=== PATIENT | male | born 1965 | race Caucasian/White ===

== ENCOUNTER 2018-02-19 10:49 | Emergency (ER) | payer BC ==
[2018-02-19] MEDS: HYDROMORPHONE HCL 0.5 MG/ 0.5 ML SYRINGE (J1170 PER 1) IM (11:51)
== END 2018-02-19 12:11 | disposition home or self-care (01) ==
LOC: M ED 10:49
DX: S52.532A Colles' fracture of left radius, initial encounter for closed fracture (principal); S62.303A Unspecified fracture of third metacarpal bone, left hand, initial encounter for closed fracture; W19.XXXA Unspecified fall, initial encounter; Y92.099 Unspecified place in other non-institutional residence as the place of occurrence of the external cause; Y93.9 Activity, unspecified; Y99.9 Unspecified external cause status; Z79.82 Long term (current) use of aspirin
CPT/HCPCS: J1170

== ENCOUNTER 2018-11-12 00:02 | Emergency (ER) | payer BC ==
[~2018-11-12] VITALS: Ht 182.9 cm; Wt 95.5 kg
[~2018-11-12 00:02] MED LIST: ASPI-1 PO; HYDR-3713 PO
[2018-11-12 00:48] LABS: HEMOGLOBIN 16.7 g/dl (13.5-17.5); MEAN CORPUSCULAR HGB CONC 34.8 g/dl (32.0-36.5); MEAN CORPUSCULAR VOLUME 89.1 fl (80.0-96.0); PLATELET COUNT, AUTOMATED 292 10^3/uL (150-450); RED BLOOD COUNT 5.39 10^6/uL (4.30-6.10); WHITE BLOOD COUNT 9.7 10^3/uL (4.0-10.0)
[2018-11-12 01:15] LABS: AMPHETAMINES LEVEL URINE NEGATIVE (NEGATIVE); BARBITURATES URINE NEGATIVE (NEGATIVE); BENZODIAZEPINES URINE NEGATIVE (NEGATIVE); CANNABINOIDS URINE NEGATIVE (NEGATIVE); COCAINE METABOLITE URINE NEGATIVE (NEGATIVE); METHADONE URINE NEGATIVE (NEGATIVE); OPIATES URINE NEGATIVE (NEGATIVE); PHENCYCLIDINE URINE NEGATIVE (NEGATIVE)
[2018-11-12 01:19] LABS: ACETAMINOPHEN LEVEL < 2.0 UG/ML (10.0-30.0); ALBUMIN 3.9 GM/DL (3.2-5.2); ALT/SGPT 58 U/L (12-78); BILIRUBIN,DIRECT < 0.1 MG/DL (0.0-0.2); BILIRUBIN,TOTAL 0.2 MG/DL (0.2-1.0); BLOOD UREA NITROGEN 7 MG/DL (7-18); CALCIUM LEVEL 8.8 MG/DL (8.5-10.1); CARBON DIOXIDE LEVEL 21 MEQ/L (21-32); CHLORIDE LEVEL 104 MEQ/L (98-107); CREATININE FOR GFR 0.97 MG/DL (0.70-1.30); ETHYL ALCOHOL (ETHANOL) 0.144 % (0.000-0.010); GLOMERULAR FILTRATION RATE > 60.0 (>56); GLUCOSE, FASTING 126 MG/DL (70-100); POTASSIUM SERUM 3.7 MEQ/L (3.5-5.1); SALICYLATE LEVEL < 1.7 MG/DL (5.0-30.0); SODIUM LEVEL 137 MEQ/L (136-145); TOTAL PROTEIN 7.8 GM/DL (6.4-8.2)
[2018-11-12 01:46] VITALS: BP 137/94
[2018-12-11] MEDS ORDERED: OMEP40CA97 PO (00:05)
== END 2018-11-12 01:48 | disposition home or self-care (01) ==
LOC: M ED 00:02
DX: F10.129 Alcohol abuse with intoxication, unspecified (principal); Z60.9 Problem related to social environment, unspecified
CPT/HCPCS: 36415; 80048; 80076; 80307; 84443; 85027; 99284; G0480

== ENCOUNTER 2018-12-10 21:50 | Emergency (ER) | payer BC ==
[~2018-12-10] VITALS: Ht 182.9 cm; Wt 100.0 kg
[2018-12-10] MEDS ORDERED: NEXI40CA PO (21:54)
[2018-12-10] MEDS ORDERED: PEPT262T2 PO (21:54)
[2018-12-10 23:07] LABS: BASO % 0.4 % (0.0-1.0); EOS # 0.1 10^3/uL (0.0-0.5); EOS % 1.3 % (0.0-3.0); HEMOGLOBIN 16.3 g/dl (13.5-17.5); LYMPH # 1.6 10^3/uL (1.5-5.0); LYMPH % 18.9 % (24.0-44.0); MEAN CORPUSCULAR HEMOGLOBIN 30.4 pg (27.0-33.0); MEAN CORPUSCULAR VOLUME 89.4 fl (80.0-96.0); MONO # 0.5 10^3/uL (0.0-0.8); MONO % 5.9 % (0.0-5.0); NEUTROPHILS # 6.1 10^3/uL (1.5-8.5); PLATELET COUNT, AUTOMATED 269 10^3/uL (150-450); RED BLOOD COUNT 5.37 10^6/uL (4.30-6.10); WHITE BLOOD COUNT 8.3 10^3/uL (4.0-10.0)
[2018-12-10 23:33] LABS: ALBUMIN 3.6 GM/DL (3.2-5.2); BILIRUBIN,DIRECT 0.5 MG/DL (0.0-0.2); BILIRUBIN,TOTAL 0.9 MG/DL (0.2-1.0); TOTAL PROTEIN 7.3 GM/DL (6.4-8.2)
--- NOTE | 2018-12-10 23:52 | REPVR ---
PROCEDURE INFORMATION: Exam: US Abdomen Limited, Right Upper Quadrant Exam date and time: 12/10/2018 11:11 PM Clinical history: 53 years old, male; Abdominal pain; Epigastric; Additional info: Upper abd pain R/O cholecystitis TECHNIQUE: Imaging protocol: Real-time ultrasound of the abdomen with image documentation. Examination was focused on the right upper quadrant. COMPARISON: No relevant prior studies available. FINDINGS: Liver: The liver is diffusely echogenic relative to the right kidney, findings consistent with steatosis. Gallbladder: Gallbladder not fully distended. Negative sonographic Chowdary's sign. No calculi demonstrated. Common bile duct: The common bile duct measures 3.6 mm. No mass or choledocholithiasis. Pancreas: Pancreas obscured by overlying bowel gas. Right kidney: Right kidney measures 11.8 x 5.1 x 4.6 cm. IMPRESSION: 1. Hepatic steatosis. 2. Gallbladder not fully distended. Negative sonographic Chowdary's sign. No calculi demonstrated. Electronically signed by: Flavio Cisneros On 12/10/2018 23:51:21 PM
[2018-12-11] MEDS ORDERED: OMEP40CA2 PO (00:05)
[2018-12-11 00:14] VITALS: BP 122/84
--- NOTE | 2018-12-11 08:18 | ECGEPIP ---
[facility] - ED Test Date: 2018-12-10 Pat Name: MARK PACE Department: Room: - Gender: Male [employer] Advisor: : [id number] Requested By: Maame Ware PA-C Order Number: [id number] Reading MD: Odette Stinson Measurements Intervals [place] Rate: 99 P: 42 SD: 142 QRS: -32 QRSD: 95 T: 21 QT: 362 QTc: 466 Interpretive Statements SINUS RHYTHM INDETERMINATE AXIS PATTERN CONSISTENT WITH PULMONARY DISEASE NSTTW abnormalities No prior Electronically Signed on 12-11-2018 8:17:54 EDT by Odette Stinson
== END 2018-12-11 00:15 | disposition home or self-care (01) ==
LOC: M ED 21:50
DX: R10.13 Epigastric pain (principal); K75.9 Inflammatory liver disease, unspecified; K76.0 Fatty (change of) liver, not elsewhere classified; R94.31 Abnormal electrocardiogram [ECG] [EKG]

== ENCOUNTER 2019-04-16 11:44 | Emergency (ER) | payer BC ==
[~2019-04-16] VITALS: Ht 182.9 cm; Wt 84.5 kg
[~2019-04-16 11:44] MED LIST changes: +NEXI40CA PO; +OMEP40CA97 PO; +PEPT262T2 PO
[2019-04-16] MEDS ORDERED: ACET-683 PO (11:51)
--- NOTE | 2019-04-16 12:13 | REP ---
Clinical: Severe right hip pain. Technique: Neutral and frog lateral views of the right hip. Findings: No acute fracture or dislocation. Skeletal structures, joint spaces, and surrounding soft tissues are normal for age. No overt osteoarthritic degenerative changes are appreciated. Impression: Normal age appropriate right hip radiographs. Electronically Signed by Sammy Arrieta MD 04/16/2019 12:05 P
[2019-04-16 13:56] LABS: BASO % 0.3 % (0.0-1.0); EOS # 0.1 10^3/uL (0.0-0.5); EOS % 1.5 % (0.0-3.0); HEMATOCRIT 46.2 % (42.0-52.0); HEMOGLOBIN 14.8 g/dl (13.5-17.5); LYMPH # 1.5 10^3/uL (1.5-5.0); MEAN CORPUSCULAR VOLUME 93.5 fl (80.0-96.0); MONO # 0.4 10^3/uL (0.0-0.8); MONO % 5.8 % (0.0-5.0); NEUTROPHILS # 4.1 10^3/uL (1.5-8.5); NEUTROPHILS % 67.1 % (36.0-66.0); PLATELET COUNT, AUTOMATED 231 10^3/uL (150-450); RED BLOOD COUNT 4.94 10^6/uL (4.30-6.10); WHITE BLOOD COUNT 6.1 10^3/uL (4.0-10.0)
[2019-04-16 14:09] VITALS: BP 114/77
== END 2019-04-16 14:15 | disposition home or self-care (01) ==
LOC: M ED 11:44
DX: M25.551 Pain in right hip (principal); M10.9 Gout, unspecified

== ENCOUNTER 2022-04-07 01:11 | Emergency (ER) | payer BC, SELFPAY ==
[~2022-04-07] VITALS: Ht 182.9 cm; Wt 85.1 kg
[~2022-04-07 01:11] MED LIST changes: +ACET-683 PO; +OMEP40CA4 PO; -OMEP40CA97 PO
[2022-04-07] MEDS ORDERED: NAPR-837 PO (04:47)
[2022-04-07] MEDS ORDERED: METH-1165 PO (04:47)
[2022-04-07] MEDS ORDERED: methocarbamoL 750 MG TAB PO ONE (04:50)
[2022-04-07] MEDS ORDERED: NAPROXEN 250 MG TAB PO ONE (04:50)
[2022-04-07 05:00] VITALS: BP 120/74
== END 2022-04-07 05:10 | disposition home or self-care (01) ==
LOC: M ED 01:11
DX: M25.552 Pain in left hip (principal); M10.9 Gout, unspecified; Z79.1 Long term (current) use of non-steroidal anti-inflammatories (NSAID); Z79.899 Other long term (current) drug therapy

== ENCOUNTER 2025-01-23 10:46 | Emergency (ER) | payer SELFPAY ==
[~2025-01-23] VITALS: Ht 182.9 cm; Wt 92.4 kg
[~2025-01-23 10:46] MED LIST changes: +METH-1165 PO; +NAPR-837 PO
[2025-01-23 12:17] LABS: BASO # 0.0 10^3/uL (0.0-0.2); BASO % 0.5 % (0.0-1.0); EOS # 0.1 10^3/uL (0.0-0.5); EOS % 1.0 % (0.0-3.0); LYMPH # 1.9 10^3/uL (1.5-5.0); LYMPH % 21.7 % (24.0-44.0); MONO # 0.6 10^3/uL (0.0-0.8); MONO % 6.2 % (2.0-8.0); NEUTROPHILS # 6.2 10^3/uL (1.5-8.5); NEUTROPHILS % 70.4 % (36.0-66.0); PLATELET COUNT, AUTOMATED 328 10^3/uL (150-450)
[2025-01-23 12:45] LABS: C REACTIVE PROTEIN QUANTITATIV 2.51 MG/DL (<1.0)
[2025-01-23 12:46] LABS: CALCIUM LEVEL 9.1 MG/DL (8.5-10.1); CARBON DIOXIDE LEVEL 30 MMOL/L (20-31); CHLORIDE LEVEL 100 MMOL/L (98-107); CREATININE FOR GFR 0.97 MG/DL (0.70-1.30); GLOMERULAR FILTRATION RATE > 90.0 (>56); POTASSIUM SERUM 5.2 MMOL/L (3.5-5.1); SODIUM LEVEL 138 MMOL/L (136-145)
[2025-01-23 13:15] VITALS: BP 145/88; O2SAT 98
[2025-01-23] MEDS: KETOROLAC 30 MG/ML 1 ML VIAL IV ONE (13:25)
[2025-01-23] MEDS ORDERED: ISOVUE-370 76% 100 ML VIAL As Ordered ONE (13:48)
[2025-01-23] MEDS ORDERED: CEPH500C PO (14:47)
[2025-01-23 15:05] VITALS: TEMP 98.6
== END 2025-01-23 15:10 | disposition home or self-care (01) ==
LOC: M ED 10:46
DX: L03.211 Cellulitis of face (principal); F10.10 Alcohol abuse, uncomplicated; Z79.1 Long term (current) use of non-steroidal anti-inflammatories (NSAID); Z79.2 Long term (current) use of antibiotics
CPT/HCPCS: 70487; 80048; 85025; 85652; 86140; 87040; 96374; 99284; J1885; Q9967